=== PATIENT | female | born 1950 | race Caucasian/White ===

== ENCOUNTER 2016-10-23 20:55 | Emergency (ER) | payer MEDICARE, OTHER ==
[~2016-10-23] VITALS: Ht 162.6 cm; Wt 51.9 kg
[2016-10-23 21:27] VITALS: BP 154/86; PULSE 80; RESP 18; TEMP 98.7; O2SAT 99
[2016-10-23] MEDS ORDERED: oxyCODONE/ACETAMINOPHEN 5 MG/325 MG TAB PO ONE (22:00)
--- NOTE | 2016-10-23 22:01 | PD ---
HPI . Left hand injury Chief Complaint: Injury Time Seen by Provider: 21:48 Travel History International Travel<30 days: No Contact w/Intl Traveler<30days: No Traveled to known affect area: No History of Present Illness HPI 66 yr old female with no significant past medical history other than prior repair of her left wrist here for complaints of left hand injury that occurred yesterday. Last night patient was in her bathroom and somehow lost her balance and fell on an outstretched wrist. She is actually complaining of pain in the thenar prominence of her left hand. She has difficulty moving her thumb. She denies any pain at the wrist. She has normal range of motion of the wrist however she is unable to move herself thumb and index finger. She denies any loss of consciousness or head injury. She has no other complaints. PFSH Past Medical History Anxiety: Yes Cancer: No Cardiovascular Problems: No Diabetes: No Diminished Hearing: No Glaucoma: No Hepatitis: No Hiatal Hernia: No Hypertension: No Medical other: No Respiratory: No Immunizations Current: Yes Thyroid Disease: No Influenza Vaccination: No ?: Not Menopausal: Yes Past Surgical History Pacemaker: No Other Surgery: Yes Social History Alcohol Use: Yes (socially) Tobacco Use: No Substance Use: No Allergies-Medications (Allergen,Severity, Reaction): Coded Allergies: Sulfa (Unverified Allergy, Severe, 07/11/14) Reported Meds & Prescriptions Reported Meds & Active Scripts Active No Active Prescriptions or Reported Medications Review of Systems General / Constitutional: No: Fever Eyes: No: Visual changes HENT: No: Headaches Cardiovascular: No: Chest Pain or Discomfort Respiratory: No: Shortness of Breath Gastrointestinal: No: Abdominal Pain Genitourinary: No: Dysuria Musculoskeletal: Positive: Pain (left hand) Skin: No Rash Neurologic: No: Weakness Psychiatric: No: Depression Endocrine: No: Polydipsia Hematologic/Lymphatic: No: Easy Bruising Physical Exam Narrative GENERAL: AAO x 3, no acute distress, Well-nourished, well-developed patient. SKIN: Warm and dry. No visible rashes or bruising. HEAD: Normocephalic and atraumatic. EYES: No scleral icterus. No injection or drainage. ENT: No nasal drainage noted. Mucous membranes pink. Airway patent. NECK: Supple, trachea midline. No JVD. CARDIOVASCULAR: Regular rate and rhythm without murmurs, gallops, or rubs. RESPIRATORY: Breath sounds equal bilaterally. No accessory muscle use. No rhonchi or rales. GASTROINTESTINAL: Abdomen soft, non-tender, nondistended. EXTREMITIES: No cyanosis or edema. left hand with edema over thenar prominence, there is tenderness to the area.Wrist movement is normal BACK: Nontender without obvious deformity. No CVA tenderness. PSYCH: AAO x 3, normal affect. Data Data Last Documented VS Vital Signs Date Time Temp Pulse Resp B/P Pulse Ox O2 Delivery O2 Flow Rate FiO2 10/23/16 21:27 98.7 80 18 154/86 99 Orders Hand, Complete ([id number]) (10/23/16 21:48) Oxycodone-Acetamin 5-325 Mg (Percocet (10/23/16 22:00) MDM Medical Decision Making Medical Screen Exam Complete: Yes Emergency Medical Condition: Yes Medical Record Reviewed: Yes Differential Diagnosis thumb fracture, finger sprain, less likely wrist fracture Narrative Course 66 yr old female with no significant past medical history other than prior repair of her left wrist here for complaints of left hand injury that occurred yesterday. Last night patient was in her bathroom and somehow lost her balance and fell on an outstretched wrist. She is actually complaining of pain in the thenar prominence of her left hand. She has difficulty moving her thumb. She denies any pain at the wrist. She has normal range of motion of the wrist however she is unable to move herself thumb and index finger. She denies any loss of consciousness or head injury. She has no other complaints. Patient seen and examined. She appears to have a possible sprain vs. fracture of her left thumb. X-rays are ordered. Percocet given for pain control in the emergency department. No acute fracture. Likely sprain. Recommend buddy wrap in ED. Naprosyn for inflammation. Advised RICE. Patient advised to follow up with primary care provider. Patient verbalized understanding of instructions, questions were answered, and thanked me for their care. I advised them if their condition worsens, please return to the nearest emergency room for further care. Diagnosis Primary Impression: Thumb sprain Qualified Code: S63.601A - Sprain of right thumb, unspecified site of finger, initial encounter Patient Instructions: General Instructions Additional Instructions: Rest the affected area as much as possible. Ice this area for 15-20 minutes at a time. You can do this every hour or as much as tolerated. Keep this area compressed (buddy bandage) as tolerated. Elevate this area. Use Naprosyn as needed for pain and inflammation. Please return to emergency department if your symptoms return or worsen. Follow up with your primary care provider. Take medications as prescribed. Scripts No Active Prescriptions or Reported Meds Disposition: 01 DISCHARGE HOME Condition: Stable Brandy Mustafa Oct 23, 2016 22:01
--- NOTE | 2016-10-23 22:31 | RADHPO ---
EXAM DATE/TIME: 10/23/2016 22:03 [facility] COMPARISON: HAND LEFT COMPLETE ([id number]), April 22, 2010, 12:15. INDICATIONS : Left hand pain from injury yesterday. MEDICAL HISTORY : None. SURGICAL HISTORY : Left hand and wrist surgery. ENCOUNTER: Initial ACUITY: 2 days PAIN SCORE: 8/10 LOCATION: Left Hand FINDINGS: Three view examination of the left hand demonstrates plate and screw fixation of the distal radius. A lso plate and screw fixation of the fifth metacarpal. No acute fracture or dislocation.CONCLUSION: 1. No acute findings. Fixation left fifth metacarpal and distal radius. Guevara Pascual MD on October 23, 2016 at 22:26 Board Certified Radiologist. This report was verified electronically.
[2016-10-23] MEDS ORDERED: NAPR500 PO (22:35)
== END 2016-10-23 22:47 | disposition home or self-care (01) ==
LOC: PHED 20:55 → PHEFT 22:47
DX: S63.602A Unspecified sprain of left thumb, initial encounter (principal); Z86.59 Personal history of other mental and behavioral disorders; W18.39XA Other fall on same level, initial encounter; Y92.002 Bathroom of unspecified non-institutional (private) residence as the place of occurrence of the external cause
CPT/HCPCS: 73130; 99283

== ENCOUNTER 2017-07-15 14:52 | Emergency (ER) | payer MEDICARE, OTHER ==
[~2017-07-15] VITALS: Ht 154.9 cm; Wt 52.0 kg
[~2017-07-15 14:52] MED LIST: NAPR500 PO
[2017-07-15 15:00] VITALS: BP 160/86; PULSE 99; RESP 16; TEMP 98.6; O2SAT 95
--- NOTE | 2017-07-15 17:06 | RADRPT ---
EXAM DATE/TIME: 07/15/2017 16:33 [facility] COMPARISON: No previous studies available for comparison. INDICATIONS : Fall with laceration to back of head. RADIATION DOSE: 58.90 CTDIvol (mGy) MEDICAL HISTORY : None SURGICAL HISTORY : None. ENCOUNTER: Initial ACUITY: 1 day PAIN SCALE: 6/10 LOCATION: occipital TECHNIQUE: Multiple contiguous axial images were obtained of the head. Using automated exposure control and adj ustment of the mA and/or kV according to patient size, radiation dose was kept as low as reasonably a chievable to obtain optimal diagnostic quality images. DICOM format image data is available electro nically for review and comparison. FINDINGS: CEREBRUM: The ventricles are normal for age. No evidence of midline shift, mass lesion, hemorrhage or acute in farction. No extra-axial fluid collections are seen. POSTERIOR FOSSA: The cerebellum and brainstem are intact. The 4th ventricle is midline. The cerebellopontine angle i s unremarkable. EXTRACRANIAL: Mild mucosal thickening of the ethmoid sinuses. SKULL: The calvaria is intact. No evidence of skull fracture. CONCLUSION: No acute intracranial findings. Maikel Cook MD on July 15, 2017 at 17:03 Board Certified Radiologist. This report was verified electronically.
--- NOTE | 2017-07-15 17:14 | PD ---
HPI Chief Complaint: Laceration/Skin Injury Time Seen by Provider: 15:56 Travel History International Travel<30 days: No Contact w/Intl Traveler<30days: No Traveled to known affect area: No History of Present Illness HPI 67-year-old female here after a mechanical fall causing laceration to left occipital scalp. Patient is not anticoagulated. She reports she tripped falling backwards. No loss of consciousness. She has a mild headache at this time. No visual changes. No neck pain. She is no other medical complaints. Symptom severity is moderate. No aggravating or alleviating factors. PFSH Past Medical History Anxiety: Yes Cancer: No Cardiovascular Problems: No Diabetes: No Diminished Hearing: No Glaucoma: No Hepatitis: No Hiatal Hernia: No Hypertension: No Medical other: No Respiratory: No Immunizations Current: Yes Thyroid Disease: No Menopausal: Yes Past Surgical History Pacemaker: No Other Surgery: Yes Social History Alcohol Use: Yes (socially) Tobacco Use: No Substance Use: No Allergies-Medications (Allergen,Severity, Reaction): Coded Allergies: Sulfa (Sulfonamide Antibiotics) (Unverified Allergy, Severe, 07/15/17) Reported Meds & Prescriptions Reported Meds & Active Scripts Active No Active Prescriptions or Reported Medications Review of Systems Except as stated in HPI: all other systems reviewed are Neg HENT: Positive: Headaches Physical Exam Narrative GENERAL: Alert well-appearing female. SKIN: Warm and dry. 3 cm laceration left scalp. HEAD: Normocephalic. No palpable skull fracture. EYES: Pupils equal, round, react to light. EOMs intact.. No injection or drainage. NECK: Supple, trachea midline. No cervical spine tenderness. CARDIOVASCULAR: Regular rate and rhythm without murmurs, gallops, or rubs. RESPIRATORY: Breath sounds equal bilaterally. No accessory muscle use. GASTROINTESTINAL: Abdomen soft, non-tender, nondistended. MUSCULOSKELETAL: No cyanosis, or edema. BACK: Nontender without obvious deformity. No CVA tenderness. NEUROLOGICAL: Awake and alert. Cranial nerves II through XII intact. Motor and sensory grossly within normal limits. Five out of 5 muscle strength in all muscle groups. Normal speech. Data Data Last Documented VS Vital Signs Date Time Temp Pulse Resp B/P (MAP) Pulse Ox O2 Delivery O2 Flow Rate FiO2 07/15/17 15:00 98.6 99 16 160/86 (110) [address] Brain W/O Iv Contrast(Rout) (07/15/17 ) Ed Discharge Order (07/15/17 17:14) [facility] Medical Decision Making Medical Screen Exam Complete: Yes Emergency Medical Condition: Yes Differential Diagnosis Scalp laceration, skull fracture, ICH Narrative Course 67-year-old female here after a mechanical fall causing laceration to left occipital scalp. Patient is not anticoagulated. She has a normal neurologic exam. She was reporting mild headaches/dizziness after the fall. Laceration repair performed. CT scan of brain ordered and pending. CT scan negative for intracranial abnormality. CT results discussed with patient and family. On reexam patient reports symptom improvement. She has repeat normal neurologic exam. She'll be discharged home. Procedures Procedure Narrative LACERATION LOCATION: Left occipital scalp LENGTH: 3 centimeters NUMBER OF STITCHES/CHARLIE: 3 Charlie REPAIR: The area of the laceration was prepped with Betadine and sterilely draped. . The wound was copiously irrigated and explored without evidence of foreign body, tendon injury or neurovascular injury. The wound was closed using charlie. This was a single layer repair. A sterile dressing was applied. The patient was advised to keep the dressing clean and dry. Patient tolerated the procedure well. Diagnosis Primary Impression: Head injury Qualified Codes: S09.90XA - Unspecified injury of head, initial encounter Additional Impression: Scalp laceration Qualified Codes: S01.01XA - Laceration without foreign body of scalp, initial encounter Referrals: Primary Care Physician Additional Instructions: Charlie need to be removed in 7-10 days. Take Tylenol or ibuprofen as needed for pain. Follow-up the primary doctor. Return if he developed new or worsening symptoms. Scripts No Active Prescriptions or Reported Meds Disposition: 01 DISCHARGE HOME Condition: Stable AngparishSarah ESCALONA Jul 15, 2017 17:14
== END 2017-07-15 17:24 | disposition home or self-care (01) ==
LOC: PHED 14:52 → PHEFT 17:24
DX: S09.90XA Unspecified injury of head, initial encounter (principal); S01.01XA Laceration without foreign body of scalp, initial encounter; F41.9 Anxiety disorder, unspecified; W01.0XXA Fall on same level from slipping, tripping and stumbling without subsequent striking against object, initial encounter; Z88.2 Allergy status to sulfonamides
CPT/HCPCS: 12002; 70450

== ENCOUNTER 2017-07-23 08:40 | Emergency (ER) | payer MEDICARE, OTHER ==
[~2017-07-23] VITALS: Ht 162.6 cm; Wt 52.0 kg
[2017-07-23 08:44] VITALS: BP 155/87; PULSE 72; RESP 16; TEMP 75.9; TEMP 97.5; O2SAT 99
--- NOTE | 2017-07-23 09:09 | PD ---
HPI Chief Complaint: Wound/Suture/Staple Re-Check Time Seen by Provider: 09:05 Travel History International Travel<30 days: No Contact w/Intl Traveler<30days: No Traveled to known affect area: No History of Present Illness HPI 67-year-old female presents to the emergency department for staple removal. Patient had 3 humberto placed after a fall on July 15, 2017. She is here today to have suture removal. She reports no complications. No headaches. No vomiting. She denies any drainage or erythema. She does not take any medications. She has no chronic medical problems. No exacerbating or alleviating factors. Mild severity. PFSH Past Medical History Anxiety: Yes Cancer: No Cardiovascular Problems: No Diabetes: No Diminished Hearing: No Glaucoma: No Hepatitis: No Hiatal Hernia: No Hypertension: No Respiratory: No Immunizations Current: Yes Thyroid Disease: No ?: Not Menopausal: Yes Past Surgical History Pacemaker: No Other Surgery: Yes Social History Alcohol Use: Yes (socially) Tobacco Use: No Substance Use: No Allergies-Medications (Allergen,Severity, Reaction): Coded Allergies: Sulfa (Sulfonamide Antibiotics) (Unverified Allergy, Severe, 07/23/17) Reported Meds & Prescriptions Reported Meds & Active Scripts Active No Active Prescriptions or Reported Medications Review of Systems Except as stated in HPI: all other systems reviewed are Neg Physical Exam Narrative GENERAL: Well-nourished, well-developed female patient, afebrile. SKIN: Focused skin assessment warm/dry. Patient has healing 3 cm laceration of the occipital scalp with [address] No erythema or drainage. HEAD: Normocephalic. EYES: No scleral icterus. No injection or drainage. RESPIRATORY: No accessory muscle use. MUSCULOSKELETAL: No cyanosis, or edema. Data Data Last Documented VS Vital Signs Date Time Temp Pulse Resp B/P (MAP) Pulse Ox O2 Delivery O2 Flow Rate FiO2 07/23/17 08:44 97.5 72 16 155/87 (109) 99 MDM Medical Decision Making Medical Screen Exam Complete: Yes Emergency Medical Condition: Yes Medical Record Reviewed: Yes Differential Diagnosis Staple removal versus healing laceration versus dehiscence versus cellulitis Narrative Course 67-year-old female presents to the emergency department for staple removal. Laceration is healing well without complication. 3 humberto are removed without difficulty. The patient was discharged in stable condition with instructions, including return instructions and follow up instructions. Diagnosis Primary Impression: Removal of humberto Referrals: Primary Care Physician call for appointment Patient Instructions: General Instructions, Stitches Removal (ED) Additional Instructions: Clean area gently with soap and water. Follow-up with your primary care physician as needed. Return to the emergency department for any emergent conditions. Med/Other Pt SpecificInfo: No Change to Meds Scripts No Active Prescriptions or Reported Meds Disposition: 01 DISCHARGE HOME Condition: Stable Tracy Whyte Jul 23, 2017 09:09
== END 2017-07-23 09:13 | disposition home or self-care (01) ==
LOC: PHEFT 08:40
DX: Z48.02 Encounter for removal of sutures (principal)
CPT/HCPCS: 99281